=== PATIENT | female | born 1985 ===

== ENCOUNTER 2020-09-18 19:30 | Emergency (ER) | payer MEDICAID ==
[~2020-09-18] VITALS: Ht 167.6 cm; Wt 74.2 kg
[2020-09-18 19:33] VITALS: BP 105/53
--- NOTE | 2020-09-18 21:22 | NUR ---
Waiting for dispo papers.
== END 2020-09-18 22:11 | disposition home or self-care (01) ==
LOC: ED 21:41
DX: M70.72 Other bursitis of hip, left hip (principal); M25.552 Pain in left hip; Y93.89 Activity, other specified
CPT/HCPCS: 99282